=== PATIENT | male | born 1995 | race Hispanic/Latino ===

== ENCOUNTER 2021-07-15 20:02 | Emergency (ER) | payer SELFPAY ==
--- NOTE | ~2021-07-15 | XR_ITS ---
EXAM: XR shoulder RT min 2V HISTORY: RT SHOULDER PAIN INJURY,CAN'T MOVE ARM,PAIN AC JOINT COMPARISON: None available FINDINGS: Normal mineralization. No fracture or dislocation. No lytic or blastic lesion. Joint space s maintained. No erosion or periosteal change. Soft tissues within normal limits. IMPRESSION: No acute osseous finding in the right shoulder. Reviewed, dictated and finalized at location K.
[2021-07-15 20:11] VITALS: BP 130/54; PULSE 72; RESP 24; TEMP 37.3; O2SAT 97
--- NOTE | 2021-07-15 20:48 | ED.UPPEXIN ---
HPI - Extremity Injury (Upper) General Chief Complaint: Extremity Injury, Upper Stated Complaint: upper extremity pain Time Seen by Provider: 07/15/21 20:39 History of Present Illness HPI narrative: 25-year-old male presents the emergency room complaints of right shoulder pain. Patient states that he was stretching when he felt a cramp in his right shoulder. Patient states the pain is worse when moving the arm around, and is improved his arms over his head. Patient denies any injury or trauma Related Data Allergies Allergy/AdvReac Type Severity Reaction Status Date / Time No Known Allergies Allergy Verified 07/15/21 20:48 Review of Systems Review of Systems: CONSTITUTIONAL: Denies fever, chills, or sweats. EYES: Denies visual changes, redness, or discharge. ENT: Denies rhinorrhea, congestion, sore throat, or otalgia. CARDIOVASCULAR: Denies chest pain, palpitations, or edema. RESPIRATORY: Denies cough or dyspnea. GASTROINTESTINAL: Denies abdominal pain, nausea, vomiting, or diarrhea. GENITOURINARY: Denies dysuria or hematuria. SKIN: Denies rash or itching. MUSCULOSKELETAL: Reports right shoulder pain NEUROLOGIC: Denies headache, numbness, dizziness, or weakness. PSYCHIATRIC: Denies anxiety or depression. Exam Narrative: GENERAL: Well-appearing, well-nourished, and in no acute distress. HEAD: Normocephalic, atraumatic. EYES: PERRLA and EOMI. CHEST: Clear to auscultation. No respiratory distress. No wheezes rales or rhonchi HEART: Regular rate and rhythm. No murmur heard. Normal peripheral pulses. ABDOMEN: Soft, nontender, nondistended, normal active bowel sounds. EXTREMITIES: Right shoulder: Muscle spasm noted to the superior aspect of the right trapezius; no bony tenderness or abnormality; swelling; full range of motion of the shoulder joint SKIN: Warm, dry, no rash. NEURO: No focal deficits. Alert and oriented x3. PSYCH: Normal mood and affect. Course Vital Signs Vital signs: Vital Signs Temperature 37.3 C 07/15/21 20:11 Pulse Rate 72 07/15/21 20:11 Respiratory Rate 24 H 07/15/21 20:11 Blood Pressure 130/54 L 07/15/21 20:11 Pulse Oximetry 97 07/15/21 20:11 Temperature 37.3 C 07/15/21 20:11 Pulse Rate 72 07/15/21 20:11 Respiratory Rate 24 H 07/15/21 20:11 Blood Pressure 130/54 L 07/15/21 20:11 Pulse Oximetry 97 07/15/21 20:11 MDM - Extremity Injury (Upper) MDM Narrative Medical decision making narrative: 25-year-old male presents to the emergency room with complaints of a pain to his posterior right shoulder. Patient states that he has a muscle spasm back there, but thought that he had dislocated it. Denies injury or trauma. Imaging of his right shoulder showed no acute osseous abnormality, no dislocation or subluxation. Imaging Data Radiologist's impression: Impressions Shoulder X-Ray 07/15/21 21:50 IMPRESSION: No acute osseous finding in the right shoulder. Discharge Plan Discharge Clinical Impression: Muscle spasm Muscle strain of right scapular region Qualifiers: Encounter type: initial encounter Qualified Code(s): S46.911A - Strain of unspecified muscle, fascia and tendon at shoulder and upper arm level, right arm, initial encounter Patient Disposition: Home, Self-Care Condition: Stable Instructions: Antibiotic Form Prescriptions: New methocarbamol 750 mg tablet 750 mg PO TID Qty: 20 RF: 0 Follow-up/Referrals: PHYSICIAN,RECORDINGS LIBRARIAN [Primary Care Provider] - Time of Disposition: 21:59
[2021-07-15] MEDS: methocarbamoL 500 MG TABLET PO (20:49)
[2021-07-15 22:21] VITALS: BP 128/78; PULSE 78; RESP 16; TEMP 36.8; O2SAT 100
== END 2021-07-15 22:22 | disposition home or self-care (01) ==
PROVIDERS: Emergency Provider Nurse Practitioner Family
DX: S46.911A Strain of unspecified muscle, fascia and tendon at shoulder and upper arm level, right arm, initial encounter (principal); M62.838 Other muscle spasm; X50.9XXA Other and unspecified overexertion or strenuous movements or postures, initial encounter
CPT/HCPCS: 73030; 99283; A9270